=== PATIENT | female | born 1975 | race Caucasian/White ===

== ENCOUNTER 2017-11-10 14:18 | Outpatient (CLI) | payer OTHER | END 2017-11-10 14:19 | disposition home or self-care (01) | LOC: BICMAMMO 14:18 | PROVIDERS: ATTEND Obstetrics & Gynecology | DX: Z12.31 Encounter for screening mammogram for malignant neoplasm of breast (principal) | CPT/HCPCS: 77063; 77067 ==

== ENCOUNTER 2018-11-29 10:48 | Outpatient (CLI) | payer BC ==
--- NOTE | 2018-11-29 11:11 | MMO ---
Bilateral MAMMO Bilat Screen [facility]. CLINICAL HISTORY: Patient is 43 years old and is seen for screening. The patient has no family history of breast cancer. The patient has no personal history of cancer. The patient has a history of bilateral Ultrasound Guided Core Biopsy in October, - benign and bilateral Excisional Biopsy - per pt had cyst removed from breast. VIEWS: The views performed were: bilateral craniocaudal with tomosynthesis and bilateral mediolateral oblique with tomosynthesis. FILMS COMPARED: The present examination has been compared to prior imaging studies performed at [facility] on 10/16/2016, 10/22/2016 and 11/10/2017. MAMMOGRAM FINDINGS: There are scattered fibroglandular densities. There are round masses with circumscribed margins and associated biopsy clip seen in both breasts. There are no suspicious masses, suspicious calcifications, or new areas of architectural distortion. IMPRESSION: THERE IS NO MAMMOGRAPHIC EVIDENCE OF MALIGNANCY. A ROUTINE FOLLOW-UP MAMMOGRAM IN 1 YEAR IS RECOMMENDED. THE RESULTS OF THIS EXAM WERE SENT TO THE PATIENT. ACR BI-RADS Category 2 - Benign finding MAMMOGRAPHY NOTE: 1. A negative mammogram report should not delay a biopsy if a dominant of clinically suspicious mass is present. 2. Approximately 10% to 15% of breast cancers are not detected by mammography. 3. Adenosis and dense breasts may obscure an underlying neoplasm.
== END 2018-11-29 10:49 | disposition home or self-care (01) ==
LOC: BICMAMMO 10:48
PROVIDERS: ATTEND Obstetrics & Gynecology
DX: Z12.31 Encounter for screening mammogram for malignant neoplasm of breast (principal)
CPT/HCPCS: 77063; 77067

== ENCOUNTER 2019-11-16 08:12 | Outpatient (CLI) | payer BC ==
--- NOTE | 2019-11-16 09:15 | MMO ---
Bilateral MAMMO Bilat Diag [facility]. CLINICAL HISTORY: Patient is 44 years old and is seen for diagnostic exam. The patient has no family history of breast cancer. The patient has no personal history of cancer. The patient has a history of bilateral Ultrasound Guided Core Biopsy in October, - benign and bilateral Excisional Biopsy - per pt had cyst removed from breast. VIEWS: The views performed were: bilateral craniocaudal with tomosynthesis; bilateral mediolateral oblique with tomosynthesis; and bilateral mediolateral with tomosynthesis. FILMS COMPARED: The present examination has been compared to prior imaging studies performed at [facility] on 05/15/2019, and at [facility] on 11/10/2017, 11/29/2018 and 11/16/2019. This study has been interpreted with the assistance of computer-aided detection. MAMMOGRAM FINDINGS: There are scattered fibroglandular densities. Right upper outer nodules are better seen on US and remain stable. Right lower inner quadrant nodule with biopsy clip is stable. In the left breast, there are no suspicious masses, calcifications or areas of architectural distortion. IMPRESSION: FINDING IN THE RIGHT BREAST IS PROBABLY BENIGN. FOLLOW-UP IN 6 MONTHS IS RECOMMENDED. THE RESULTS OF THIS EXAM WERE SENT TO THE PATIENT. ACR BI-RADS Category 3 - Probably benign finding - short interval follow-up suggested. [facility] will notify the patient of the need for additional imaging services. MAMMOGRAPHY NOTE: 1. A negative mammogram report should not delay a biopsy if a dominant of clinically suspicious mass is present. 2. Approximately 10% to 15% of breast cancers are not detected by mammography. 3. Adenosis and dense breasts may obscure an underlying neoplasm. Reported by: BETZAIDA EMERSON MD Electonically Signed: [id number]
--- NOTE | 2019-11-16 09:57 | ULT ---
RIGHT BREAST ULTRASOUND: Date: 11/16/2019 HISTORY: Right breast nodules. COMPARISON: Right breast ultrasound of 05/15/2019. CORRELATION: Mammograms of 11/16/2019, 11/29/2018, and 05/15/2019. FINDINGS: At the 11 o'clock position of the right breast, 7.0 cm from the nipple, there is redemonstration of t wo well-circumscribed, solid-appearing, wider than tall, smoothly marginated nodules without posterio r shadowing, which were seen on the previous exam and remain stable in size at 1.0 cm and 7.0 mm, res pectively. IMPRESSION: BI-RADS Category 3 - Probably benign findings. A 6 month follow-up right breast ultrasound is recomme nded. The facility will notify patient of need for additional imaging services.
== END 2019-11-16 08:13 | disposition home or self-care (01) ==
LOC: BICMAMMO 08:12
PROVIDERS: ATTEND Obstetrics & Gynecology
DX: R92.8 Other abnormal and inconclusive findings on diagnostic imaging of breast (principal)
CPT/HCPCS: 77066; G0279

== ENCOUNTER 2020-05-02 13:47 | Outpatient (CLI) | payer BC ==
--- NOTE | 2020-05-02 14:41 | MMO ---
Right Breast MAMMO Unilat Diag [facility]. CLINICAL HISTORY: Patient is 44 years old and is seen for diagnostic exam. The patient has no family history of breast cancer. The patient has no personal history of cancer. The patient has a history of bilateral Ultrasound Guided Core Biopsy in October, - benign and bilateral Excisional Biopsy - per pt had cyst removed from breast. VIEWS: The views performed were: right craniocaudal with tomosynthesis; right mediolateral oblique with tomosynthesis; and right mediolateral with tomosynthesis. FILMS COMPARED: The present examination has been compared to prior imaging studies performed at [facility] on 05/15/2019, and at [facility] on 11/16/2019 and 05/02/2020. This study has been interpreted with the assistance of computer-aided detection. MAMMOGRAM FINDINGS: There are scattered fibroglandular densities. There is a stable oval mass with obscured margins seen in the upper-outer region of the right breast. Sonographic findings are not significantly changed. IMPRESSION: STABLE MASS IN THE RIGHT BREAST IS PROBABLY BENIGN. FOLLOW-UP IN 6 MONTHS IS RECOMMENDED. THE RESULTS OF THIS EXAM WERE SENT TO THE PATIENT. ACR BI-RADS Category 3 - Probably benign finding - short interval follow-up suggested. [facility] will notify the patient of the need for additional imaging services. MAMMOGRAPHY NOTE: 1. A negative mammogram report should not delay a biopsy if a dominant of clinically suspicious mass is present. 2. Approximately 10% to 15% of breast cancers are not detected by mammography. 3. Adenosis and dense breasts may obscure an underlying neoplasm. Reported by: MARGE AHMADI MD Electonically Signed: [id number]
--- NOTE | 2020-05-02 14:42 | ULT ---
EXAM: US Breast Limited Rt PROVIDED CLINICAL HISTORY: Right breast nodules COMPARISON: 11/16/2019 FINDINGS: Limited sonographic interrogation of the 11:00 position of the right breast redemonstrates findings t ypical for fibroadenoma. There is no significant deleon in size. IMPRESSION: No significant interval change in the 11:00 right breast mass typical for fibroadenoma. Six-month fol low-up examination recommended. BI-RADS 3 -- probably benign, 6-month follow-up
== END 2020-05-02 13:48 | disposition home or self-care (01) ==
LOC: BICMAMMO 13:47
PROVIDERS: ATTEND Obstetrics & Gynecology
DX: R92.8 Other abnormal and inconclusive findings on diagnostic imaging of breast (principal); N63.11 Unspecified lump in the right breast, upper outer quadrant
CPT/HCPCS: G0279

== ENCOUNTER 2020-09-03 13:56 | Outpatient (CLI) | payer BC ==
--- NOTE | 2020-09-03 15:04 | ULT ---
RIGHT BREAST ULTRASOUND: 09/03/20 HISTORY: Six month follow-up of breast nodules. COMPARISON: Previous ultrasound examination of 05/02/20, 05/25/19. The well circumscribed oblong shaped [id number] solid nodules within the right breast at the 11 o'clock position 7 cm from the nipple are stable. One lesion measures 5 to 6 mm in maximum size. The other 13 to 14 mm. IMPRESSION: BIRADS 2: Benign Finding(s) Routine annual screening mammography (for women over age 40). POS: OFF
--- NOTE | 2020-09-03 15:05 | ULT ---
LEFT BREAST ULTRASOUND: 09/03/20 HISTORY: Palpable abnormality at approximately 4 o'clock position left breast, 14 cm from the nipple. This is an area the patient felt. Real time imaging of the area of concern does not show any cystic or solid lesion. IMPRESSION: Unremarkable left breast ultrasound. POS: OFF
--- NOTE | 2020-09-03 15:28 | MMO ---
Bilateral MAMMO Bilat Diag [facility]. CLINICAL HISTORY: Patient is 44 years old and is seen for diagnostic exam and palpable abnormality in the left breast. The patient has no family history of breast cancer. The patient has no personal history of cancer. The patient has a history of bilateral Ultrasound Guided Core Biopsy in October, - benign and bilateral Excisional Biopsy - per pt had cyst removed from breast. VIEWS: The views performed were: bilateral craniocaudal with tomosynthesis; bilateral mediolateral oblique with tomosynthesis; bilateral mediolateral with tomosynthesis; and left exaggerated craniocaudal with tomosynthesis. FILMS COMPARED: The present examination has been compared to prior imaging studies performed at [facility] on 05/02/2020 and 09/03/2020. This study has been interpreted with the assistance of computer-aided detection. MAMMOGRAM FINDINGS: The breasts are heterogeneously dense, which could obscure a lesion on mammography. Finding 1: There is a stable mass seen in the upper-outer region of the right breast. Finding 2: Palpable area left breast shows no abnormality by ultrasound or mammogram. There are no suspicious masses, suspicious calcifications, or new areas of architectural distortion. IMPRESSION: THERE IS NO MAMMOGRAPHIC EVIDENCE OF MALIGNANCY. A ROUTINE FOLLOW-UP MAMMOGRAM IN 1 YEAR IS RECOMMENDED. THE RESULTS OF THIS EXAM WERE SENT TO THE PATIENT. ACR BI-RADS Category 2 - Benign finding MAMMOGRAPHY NOTE: 1. A negative mammogram report should not delay a biopsy if a dominant of clinically suspicious mass is present. 2. Approximately 10% to 15% of breast cancers are not detected by mammography. 3. Adenosis and dense breasts may obscure an underlying neoplasm. Reported by: SETH MAYES MD Electonically Signed: [id number]
== END 2020-09-03 13:57 | disposition home or self-care (01) ==
LOC: BICMAMMO 13:56
PROVIDERS: ATTEND Obstetrics & Gynecology
DX: N63.0 Unspecified lump in unspecified breast (principal)
CPT/HCPCS: 77066; G0279

== ENCOUNTER 2022-02-23 11:55 | Outpatient (CLI) | payer OTHER | END 2022-02-23 11:56 | disposition home or self-care (01) | LOC: BICMAMMO 11:55 | PROVIDERS: ATTEND Nurse Practitioner Family | DX: Z12.31 Encounter for screening mammogram for malignant neoplasm of breast (principal); Z91.89 Other specified personal risk factors, not elsewhere classified | CPT/HCPCS: 77063; 77067 ==